=== PATIENT | male | born 1985 | race African-American/Black ===

== ENCOUNTER 2022-09-08 08:03 | Emergency (ER) | payer SELFPAY ==
[2022-09-08] MEDS ORDERED: Ondansetron PF 4 MG/2 ML Vial ONE (08:36)
[2022-09-08 08:56] LABS: #Eosinphils 0.1 10x3/uL (0.0-0.5); #Monocytes 0.7 10x3/uL (0.0-1.1); #Neutrophils 5.9 10x3/uL (1.5-8.4); %Basophils 0.2 % (0.0-2.0); %Eosinophils 1.1 % (0.0-6.0); %Lymphocytes 18.3 % (18.0-47.0); %Neutrophils 72.2 % (40.0-75.0); Hemoglobin 14.1 g/dL (13.5-17.5); Mean Corpuscular Hemoglobin 32.1 pg (27.0-33.0); Mean Corpuscular Volume 94.5 fl (81.2-95.1); Mean Platelet Volume 9.9 fl (7.4-10.4); Platelet Count 223 10x3/uL (150-450); RBC Distribution Width 11.8 % (11.5-14.5); Red Blood Cell (RBC) Count 4.39 10x6/uL (4.32-5.72); White Blood Cell (WBC) Count 8.1 10x3/uL (3.5-10.5)
[2022-09-08 09:14] LABS: ALT (SGPT) 23 U/L (8-55); AST (SGOT) 19 U/L (5-34); Albumin 4.1 g/dL (3.5-5.0); Alkaline Phosphatase 56 U/L (40-110); Anion Gap 13 mmol/L (10-20); BUN (Urea Nitrogen) 11 mg/dL (8.9-20.6); Bilirubin, Total 0.9 mg/dL (0.2-1.2); Calc. Creatinine Clearance 0 mL/min (70-130); Calcium 9.4 mg/dL (7.8-10.44); Carbon Dioxide 26 mmol/L (22-29); Chloride 106 mmol/L (98-107); Estimated GFR 114; Glucose 80 mg/dL (70-105); Lipase 19 U/L (8-78); Protein, Total 7.1 g/dL (6.0-8.3); Sodium 141 mmol/L (136-145)
[2022-09-08 09:46] LABS: SARS-CoV-2 NAA Rapid Test Not Detected (NotDetected)
== END 2022-09-08 12:00 | disposition home or self-care (01) ==
LOC: CSHERS 08:03
DX: A08.4 Viral intestinal infection, unspecified (principal); Z20.822 Contact with and (suspected) exposure to COVID-19; F17.210 Nicotine dependence, cigarettes, uncomplicated
CPT/HCPCS: 80053; 83690; 85025; 96361; 96374; J2405

== ENCOUNTER 2023-04-08 22:55 | Emergency (ER) | payer BC ==
[2023-04-08] MEDS ORDERED: Ketorolac Tromethamine 30 MG/ML VIAL ONE (23:42)
== END 2023-04-08 23:48 | disposition home or self-care (01) ==
LOC: CSHERS 22:55
DX: S51.811A Laceration without foreign body of right forearm, initial encounter (principal); L03.113 Cellulitis of right upper limb; M25.552 Pain in left hip; F17.210 Nicotine dependence, cigarettes, uncomplicated; W26.8XXA Contact with other sharp object(s), not elsewhere classified, initial encounter
CPT/HCPCS: 96372; 99283; J1885

== ENCOUNTER 2023-05-11 22:33 | Emergency (ER) | payer BC | END 2023-05-11 22:57 | disposition home or self-care (01) | LOC: CSHERS 22:33 | DX: K08.89 Other specified disorders of teeth and supporting structures (principal); K04.7 Periapical abscess without sinus; F17.210 Nicotine dependence, cigarettes, uncomplicated | CPT/HCPCS: 99282 ==

== ENCOUNTER 2025-08-20 12:39 | Emergency (ER) | payer BC, SELFPAY ==
[2025-08-20] MEDS ORDERED: Acetaminophen 500 MG TAB ONE (13:15)
== END 2025-08-20 13:15 | disposition home or self-care (01) ==
LOC: CSHERS 12:39
DX: K08.89 Other specified disorders of teeth and supporting structures (principal); K02.9 Dental caries, unspecified; F17.210 Nicotine dependence, cigarettes, uncomplicated
CPT/HCPCS: 99282